=== PATIENT | female | born 1965 | race Caucasian/White ===

== ENCOUNTER 2018-11-26 09:11 | Day surgery (SDC) | payer OTHER ==
[~2018-11-26] VITALS: Ht 165.1 cm; Wt 102.1 kg
[2018-11-26] MEDS ORDERED: fentaNYL 0.05 MG/ML VIAL ONE (11:29)
[2018-11-26] MEDS ORDERED: LIDOCAINE 2% 100 MG/5 ML UJET TP ONE (11:30)
[2018-11-26] MEDS ORDERED: fentaNYL 0.05 MG/ML VIAL IVP ONE (11:31)
== END 2018-11-26 13:00 | disposition home or self-care (01) ==
LOC: MMU 09:11 → MDS 09:11
PROVIDERS: ATTEND Internal Medicine Gastroenterology
DX: D50.9 Iron deficiency anemia, unspecified (principal); E66.9 Obesity, unspecified
CPT/HCPCS: 45378; J3010